=== PATIENT | male | born 1965 | race Caucasian/White ===

== ENCOUNTER 2018-01-26 12:32 | Day surgery (SDC) | payer BC ==
[~2018-01-26] VITALS: Ht 167.6 cm; Wt 65.3 kg
[~2018-01-26 12:32] MED LIST: PANT40TA2 PO; SUCR1TAB36 PO; [UNRECOGNIZED DRUG - CODE]
--- OUTSIDE RECORDS SUMMARY | 2018-01-26 12:36 | XMS REPORT | Continuity of Care Document ---
Author Author [facility] Organization [facility] Address Unknown Phone Unavailable Allergies Active Description Code Type Severity Reaction Onset Reported/Identified Relationship to Patient Clinical Status Yes No Known Drug Allergies [id number] Drug Allergy Unknown N/A 04/22/2016 Medications There is no data. Problems Date Dx Coded Attending Type Code Diagnosis Diagnosed By 07/15/2015 EARLENE EASLEY, SHIELA Funk Ot 211.3 07/15/2015 EARLENE EASLEY, SHIELA Funk Ot V76.51 07/15/2015 EARLENE EASLEY, SHIELA Funk Ot V72.84 07/16/2015 JURGEN SHETH EARLY CHILDHOOD TEACHER Ot R10.817 07/17/2015 JURGEN SHETH EARLY CHILDHOOD TEACHER Ot R10.817 07/17/2015 JURGEN SHETH EARLY CHILDHOOD TEACHER Ot R10.817 08/09/2015 JURGEN SHETH APRN Ot R10.817 04/22/2016 EARLENE EASLEY, SHIELA Funk Ot 211.3 BENIGN NEOPLASM LG BOWEL 04/22/2016 EARLENE EASLEY, SHIELA Funk Ot V76.51 SCREEN MAL NEOP-COLON 04/22/2016 EARLENE EASLEY, SHIELA Funk Ot V72.84 EXAM PRE-OPERATIVE NOS 04/22/2016 JURGEN SHETH APRN Ot R10.817 GENERALIZED ABDOMINAL TENDERNESS 04/22/2016 JACKELINE WRIGHT MD Ot K21.0 GASTRO-ESOPHAGEAL REFLUX DISEASE WITH ES 04/22/2016 JACKELINE WRIGHT MD, Ot K22.2 ESOPHAGEAL OBSTRUCTION 04/22/2016 JACKELINE WRIGHT MD Ot K29.60 OTHER GASTRITIS WITHOUT BLEEDING 04/22/2016 JACKELINE WRIGHT MD, Ot K29.80 DUODENITIS WITHOUT BLEEDING 04/22/2016 JACKELINE WRIGHT MD, Ot K44.9 DIAPHRAGMATIC HERNIA WITHOUT OBSTRUCTION 04/24/2016 JACKELINE WRIGHT MD Ot K21.0 GASTRO-ESOPHAGEAL REFLUX DISEASE WITH ES 04/24/2016 JACKELINE WRIGHT MD, Ot K22.2 ESOPHAGEAL OBSTRUCTION 04/24/2016 LEVI WRIGHT MDKI Ot K29.60 OTHER GASTRITIS WITHOUT BLEEDING 04/24/2016 LEVI WRIGHT MDKI Ot K29.80 DUODENITIS WITHOUT BLEEDING 04/24/2016 JACKELINE WRIGHT MD Ot K44.9 DIAPHRAGMATIC HERNIA WITHOUT OBSTRUCTION 04/29/2016 LEVI WRIGHT MDKI Ot K21.0 GASTRO-ESOPHAGEAL REFLUX DISEASE WITH ES 04/29/2016 KYLE EASLEY, AJCKELINE Ot K22.2 ESOPHAGEAL OBSTRUCTION 04/29/2016 KYLE EASLEY, LEVIKI Ot K29.60 OTHER GASTRITIS WITHOUT BLEEDING 04/29/2016 LEVI WRIGHT MDKI Ot K29.80 DUODENITIS WITHOUT BLEEDING 04/29/2016 LEVI WRIGHT MDKI Ot K44.9 DIAPHRAGMATIC HERNIA WITHOUT OBSTRUCTION 05/07/2016 JACKELINE WRIGHT MD Ot K21.0 GASTRO-ESOPHAGEAL REFLUX DISEASE WITH ES 05/07/2016 JACKELINE WRIGHT MD Ot K22.2 ESOPHAGEAL OBSTRUCTION 05/07/2016 LEVI WRIGHT MDKI Ot K29.60 OTHER GASTRITIS WITHOUT BLEEDING 05/07/2016 LEVI WRIGHT MDKI Ot K29.80 DUODENITIS WITHOUT BLEEDING 05/07/2016 JACKELINE WRIGHT MD Ot K44.9 DIAPHRAGMATIC HERNIA WITHOUT OBSTRUCTION Procedures There is no data. Results There is no data. Encounters ACCT No. Visit Date/Time Discharge Status Pt. Type Provider Facility Loc./Unit Complaint [id number] 04/22/2016 10:14:00 04/22/2016 13:30:00 DIS Outpatient JACKELINE WRIGHT MD [facility] DYSPHAGIA [id number] 04/21/2016 11:47:00 04/21/2016 12:40:00 DIS Outpatient JACKELINE WRIGHT MD [facility] PREOP DYSPHAGIA [id number] 07/15/2015 12:27:00 07/15/2015 23:59:59 CLS Outpatient JURGEN SHETH APRN [facility] RAD ABD PAIN [id number] 07/17/2013 08:41:00 07/17/2013 23:59:59 CLS Outpatient SHIELA HENAO MD [facility] SDC SCREENING [id number] 07/12/2013 07:42:00 07/12/2013 23:59:59 CLS Outpatient EARLENE EASLEY, SHIELA Funk [facility] PREOP SCREENING
--- NOTE | 2018-01-26 12:48 | Conscious Sedation/ASA ---
Conscious Sedation Pre-Proced Time 12:45 ASA Score 2 For ASA 3 and 4: Consider anesthesia and medical clearance. Also, for patients with a history of failed moderate sedation consider anesthesia. Airway Lungs Heart ASA score ASA 1: a normal healthy patient ASA 2: a patient with a mild systemic disease (mid diabetes, controlled hypertension, obesity ASA 3: a patient with a severe systemic disease that limits activity (angina , COPD, prior Myocardial infarction) ASA 4: a patient with an incapacitating disease that is a constant threat to life (CHF, renal failure) ASA 5: a moribund patient not expected to survive 24 hrs. (ruptured aneurysm) ASA 6: a declared brain patient whose organs are being harvested. For emergent operations, add the letter E after the classification Mallampati Classification Grade 2 Sedation Plan Analgesia, Amnesia, Plan communicated to team members, Discussed options with patient/fam, Discussed risks with patient/fam The patient is an appropriate candidate to undergo the planned procedure, sedation, and anesthesia. The patient immediately re-assessed prior to indication. JACKELINE WRIGHT MD Jan 26, 2018 12:48 pm
--- NOTE | 2018-01-26 12:49 | Progress Note-Pre Operative ---
Pre-Operative Progress Note H&P Reviewed The H&P was reviewed, patient examined and no changes noted. Date Seen by Provider: Jan 26, 2018 Time Seen by Provider: 12:45 Date H&P Reviewed: Jan 26, 2018 Time H&P Reviewed: 12:45 Pre-Operative Diagnosis: dysphagia, GERD JACKELINE WRIGHT MD Jan 26, 2018 12:49 pm
[2018-01-26] MEDS ORDERED: NS IV 500 ML 500 ML IV PRN (12:51)
[2018-01-26] MEDS ORDERED: ONDANSETRON 4 MG/2 ML (SDV) Z0FRAN IV PRN (13:00)
[2018-01-26] MEDS ORDERED: morphine INJ 10 MG/ML 1ML (SYR OR VIAL) IV PRN (13:00)
[2018-01-26] MEDS ORDERED: LIDOCAINE JELLY 2% (XYLOCAINE) 5 ML TUBE MM PRN (13:00)
[2018-01-26] MEDS ORDERED: fentaNYL INJECTION 100 MCG/2 ML AMP IVP ONE (13:00)
[2018-01-26] MEDS ORDERED: HURRICAINE EXT TUBE (BENZOCAINE) XX PRN (13:00)
[2018-01-26] MEDS ORDERED: ACETAMINOPHEN 325 MG TABLET PO PRN (13:00)
[2018-01-26] MEDS ORDERED: HYDROcodone/APAP 5 MG/325 MG (LORTAB) TAB PO PRN (13:00)
[2018-01-26] MEDS ORDERED: MIDAZOLAM 2 MG/2 ML (VERSED) VIAL IVP ONE (13:00)
[2018-01-26 13:03] VITALS: BP 115/65
[2018-01-26] MEDS ORDERED: LORA10TA7 PO (13:03)
[2018-01-26] MEDS ORDERED: PANT20TA3 PO (13:03)
[2018-01-26] MEDS ORDERED: fentaNYL INJECTION 100 MCG/2 ML AMP ONE (15:32)
[2018-01-26] MEDS ORDERED: MIDAZOLAM 2 MG/2 ML (VERSED) VIAL ONE ×4 (15:32)
[2018-01-26] MEDS ORDERED: LIDOCAINE JELLY 2% (XYLOCAINE) 30 ML TUBE ONE (15:33)
[2018-01-26] MEDS ORDERED: HURRICAINE EXT TUBE (BENZOCAINE) ONE (15:33)
--- NOTE | 2018-01-26 16:36 | Progress Note-Post Operative ---
Post-Operative Progess Note Surgeon (s)/Die Maker Trim (s) Surgeon JACKELINE WRIGHT MD Die Maker Trim: none Pre-Operative Diagnosis dysphagia, GERD Post-Operative Diagnosis reflux esophagitis(stage 2), mild distal esophageal stricture. no HH, mild-mod gastritis. Procedure & Operative Findings Date of Procedure 01/26/18 Procedure Performed/Findings EGD with bx and balloon dilatation. Anesthesia Type CS Estimated Blood Loss Estimated blood loss (mL): minimal Specimens/Packing Specimens Removed GE jxn, antrum JACKELINE WRIGHT MD Jan 26, 2018 4:36 pm
--- NOTE | 2018-01-26 16:37 | Discharge Inst-Surgical ---
D/C Lap Instructions-KIDO New, Converted, or Re-Newed RX: RX on Chart Follow Up PRN Activity as tolerated High Fiber Diet 25g or more per day Avoid Alcohol, Caffeine, Spicy Shields and Acid foods. Drink 64 fluid oz or more of fluids per day. Symptoms to Report: Fever over 101 degree F, Nausea/Vomiting If any problems/questions: Contact your physician or go to Emergency Room JACKELINE WRIGHT MD Jan 26, 2018 4:37 pm
[2018-01-26 16:45] VITALS: BP 102/67
[2018-01-26] MEDS ORDERED: LIDOCAINE JELLY 2% (XYLOCAINE) 30 ML TUBE TOP ONE (17:00)
[2018-01-26 17:05] VITALS: BP 113/80
[2018-01-26 17:15] VITALS: BP 113/80
--- NOTE | 2018-01-26 23:27 | OPERATIVE REPORT ---
DATE OF SERVICE: 01/26/2018 ATTENDING RICE FARMER: Naomi Gomez APRN. PREOPERATIVE DIAGNOSES: Dysphagia, history of gastroesophageal reflux disease. POSTOPERATIVE DIAGNOSES: Reflux esophagitis stage II with mild distal esophageal stricture. No significant hiatal hernia, mild to moderate gastritis. PROCEDURE: EGD with biopsy and balloon dilatation. SURGEON: Jackeline Wright MD ANESTHESIA: Conscious sedation. ESTIMATED BLOOD LOSS: Minimal. FINDINGS: Reflux esophagitis stage II with some mild edema and erythema. No ulcerations with a mild chronic stricture. No significant hiatal hernia, mild to moderate gastritis, no ulcers, polyps or any neoplasms. Pylorus and duodenum appeared normal with no distal obstructions. DISPOSITION: The patient tolerated the procedure well. The patient is a 52-year-old male who has had a difficulty swallowing. He has had this before in the past requiring EGD and dilatation two times before. Initially in 2016, he had one performed and then again in 2017. He reports that he has had increased difficulty swallowing at times, which include solids and would feel substernal pressure sensation after food bolus which were either eventually reduce or he would regurgitate it up. He has had multiple previous surgeries and there may be some correlation with his surgeries and his symptomatology. He recently sustained a fall requiring right shoulder open reduction and internal fixation. He is currently on omeprazole. He does not report any hematemesis, no coffee ground emesis. A CT scan was performed just recently which did show thickening of the lower esophagus consistent with an esophagitis. The patient was brought to the endoscopy suite, laid in the left lateral decubitus position. After adequate IV pain and sedative medications and conscious sedation anesthesia, the mouthpiece was applied. The endoscope was placed in the mouth, visualizing the pharynx and hypopharyngeal region. Vocal cords, epiglottis and vallecula identified and appeared to be normal. The endoscope was then gently intubated in the esophageal opening. Esophagus was insufflated. The endoscope was then advanced to the first, second and third portion of the esophagus at the level of the GE junction, a reflux esophagitis staged II identified. There was some mild to moderate irritation and edema as well. There were no neoplasms or ulcerations. A biopsy was taken with forceps with visualization of good hemostasis. A mild distal esophageal stricture was also identified. The endoscope was then advanced into the stomach and endoscope retroflexed. No hiatal hernia was identified. There was a mild to moderate gastritis. There were no formal ulcerations, polyps or any neoplasms. The endoscope was then advanced through the pylorus into the first and second portion of the duodenum, which appeared normal with no distal obstructions. A biopsy was taken of the stomach antrum with forceps to rule out H. pylori. We then proceeded with dilatation of the mild distal esophageal stricture. A balloon was placed into the stomach and pulled back to the area of the stricture. We first proceeded with 2 atmospheres of pressure 18 mm in diameter with no resistance. We then proceeded with 4 atmospheres of pressure or 19 mm in diameter with mild resistance. We then proceeded to 6 atmospheres of pressure or 20 mm in diameter with mild to moderate resistance and left this in place for approximately 60 seconds. The balloon was then desufflated and removed with visualization of good hemostasis as well as no mucosal tears. The endoscope was then withdrawn while taking a second look and suctioning of residual air with no additional findings. The patient tolerated the procedure well. We will recommend the necessary lifestyle and diet accommodation including small and more frequent meals, avoidance of eating at night as well as head elevation while lying supine. We will also recommend avoiding caffeinated beverages, spicy and greasy foods. We will also start him on Protonix 40 mg daily. Job ID: [id number] DocumentID: [id number] Dictated Date: 01/26/2018 16:35:52 Medical Lab Tech Instructor Date: 01/26/2018 23:26:30 Dictated By: JACKELINE WRIGHT MD
== END 2018-01-26 17:15 | disposition home or self-care (01) ==
LOC: ENDO 12:32
PROVIDERS: ATTEND Surgery
DX: K22.2 Esophageal obstruction (principal); K21.0 Gastro-esophageal reflux disease with esophagitis; K29.70 Gastritis, unspecified, without bleeding; J30.9 Allergic rhinitis, unspecified; Z79.899 Other long term (current) drug therapy; Z80.1 Family history of malignant neoplasm of trachea, bronchus and lung